=== PATIENT | male | born 1945 | race Caucasian/White ===

== ENCOUNTER 2016-04-17 13:44 | Outpatient (CLI) | payer MEDICARE | END 2016-04-17 13:45 | disposition home or self-care (01) | DX: Z86.73 Personal history of transient ischemic attack (TIA), and cerebral infarction without residual deficits (principal); C90.00 Multiple myeloma not having achieved remission; Z79.01 Long term (current) use of anticoagulants ==

== ENCOUNTER 2016-05-02 15:11 | Outpatient (CLI) | payer MEDICARE | END 2016-05-02 15:12 | disposition home or self-care (01) | DX: Z86.73 Personal history of transient ischemic attack (TIA), and cerebral infarction without residual deficits (principal); C90.00 Multiple myeloma not having achieved remission; Z79.01 Long term (current) use of anticoagulants ==

== ENCOUNTER 2016-05-18 09:47 | Emergency (ER) | payer MEDICARE ==
[2016-05-18] MEDS ORDERED: SODIUM CHLORIDE 0.9% 1,000 ML IV ONE (10:09)
[2016-05-18] MEDS ORDERED: IPRATROPIUM/ALBUTEROL 3 ML NEB INH STA ×2 (10:09→11:47)
[2016-05-18] MEDS ORDERED: IPRATROPIUM/ALBUTEROL 3 ML NEB INH ONE ×2 (10:58→12:15)
[2016-05-18] MEDS ORDERED: AZITHROMYCIN 250 MG TABLET PO STA (12:54)
[2016-05-18] MEDS ORDERED: AZITHROMYCIN 250 MG TABLET PO ONE (12:58)
== END 2016-05-18 13:07 | disposition home or self-care (01) ==
DX: J45.909 Unspecified asthma, uncomplicated (principal); I10 Essential (primary) hypertension; Z79.01 Long term (current) use of anticoagulants; Z79.899 Other long term (current) drug therapy
CPT/HCPCS: 36415; 71020; 80053; 83690; 85025; 85610; 87275; 87276; 93005; 93010; 94640; 94664; 96360; 96361; 99284; A9270; J7620

== ENCOUNTER 2016-05-24 09:42 | Outpatient (CLI) | payer MEDICARE | END 2016-05-24 09:43 | disposition home or self-care (01) | DX: C90.00 Multiple myeloma not having achieved remission (principal); Z86.73 Personal history of transient ischemic attack (TIA), and cerebral infarction without residual deficits; Z79.01 Long term (current) use of anticoagulants ==

== ENCOUNTER 2016-06-04 12:15 | Outpatient (CLI) | payer MEDICARE | END 2016-06-04 12:16 | disposition home or self-care (01) | DX: C90.00 Multiple myeloma not having achieved remission (principal); Z79.01 Long term (current) use of anticoagulants; Z86.73 Personal history of transient ischemic attack (TIA), and cerebral infarction without residual deficits ==

== ENCOUNTER 2016-06-11 13:37 | Outpatient (CLI) | payer MEDICARE | END 2016-06-11 13:38 | disposition home or self-care (01) | DX: C90.00 Multiple myeloma not having achieved remission (principal); Z86.73 Personal history of transient ischemic attack (TIA), and cerebral infarction without residual deficits; Z79.01 Long term (current) use of anticoagulants ==

== ENCOUNTER 2016-06-19 10:48 | Outpatient (CLI) | payer MEDICARE | END 2016-06-19 10:49 | disposition home or self-care (01) | DX: C90.00 Multiple myeloma not having achieved remission (principal); Z86.73 Personal history of transient ischemic attack (TIA), and cerebral infarction without residual deficits; Z79.01 Long term (current) use of anticoagulants ==

== ENCOUNTER 2016-06-29 15:58 | Outpatient (CLI) | payer MEDICARE | END 2016-06-29 15:59 | disposition home or self-care (01) | DX: C90.00 Multiple myeloma not having achieved remission (principal); Z86.73 Personal history of transient ischemic attack (TIA), and cerebral infarction without residual deficits; Z79.01 Long term (current) use of anticoagulants ==

== ENCOUNTER 2016-07-20 11:45 | Outpatient (CLI) | payer MEDICARE | END 2016-07-20 11:46 | disposition home or self-care (01) | DX: Z86.73 Personal history of transient ischemic attack (TIA), and cerebral infarction without residual deficits (principal); C90.00 Multiple myeloma not having achieved remission; Z79.01 Long term (current) use of anticoagulants ==

== ENCOUNTER 2016-12-13 11:22 | Outpatient (CLI) | payer MEDICARE ==
[2016-12-13 11:33] LABS: BASOPHILS # (AUTO) 0.1 10^3/uL (0.0-0.1); BASOPHILS % (AUTO) 3.2 %; EOSINOPHILS # (AUTO) 0.3 10^3/uL (0.0-0.7); EOSINOPHILS % (AUTO) 6.8 %; HCT - HEMATOCRIT 33.2 % (42.0-52.0); HGB - HEMOGLOBIN 11.3 g/dL (14.0-18.0); LYMPHOCYTES # (AUTO) 0.6 10^3/uL (1.5-3.5); LYMPHOCYTES % (AUTO) 12.3 %; MEAN CORPUSCULAR HEMOGLOBIN 31.8 pg (27.0-31.0); MEAN CORPUSCULAR HGB CONC 33.9 g/dL (32.0-36.0); MEAN CORPUSCULAR VOLUME 93.7 fL (80.0-94.0); MEAN PLATELET VOLUME 7.9 fL (7.4-11.4); MONOCYTES # (AUTO) 0.8 10^3/uL (0.0-1.0); MONOCYTES % (AUTO) 16.7 %; NEUTROPHILS # (AUTO) 2.7 10^3/uL (1.5-6.6); NUCLEATED RED BLOOD CELLS AUTO 0.2 /100WBC; RED BLOOD COUNT 3.54 10^6/uL (4.70-6.10); RED CELL DISTRIBUTION WIDTH 15.8 % (12.0-15.0); UNCORRECTED WHITE BLOOD COUNT 4.5 x10^3/uL; WHITE BLOOD COUNT 4.5 x10^3/uL (4.8-10.8)
[2016-12-13 13:02] LABS: ALBUMIN/GLOBULIN RATIO 1.5 (1.0-2.2); BILIRUBIN,TOTAL 1.2 mg/dL (0.2-1.0); CALCIUM 9.3 mg/dL (8.5-10.3); CREATININE 1.5 mg/dL (0.6-1.2); POTASSIUM 3.6 mmol/L (3.5-5.0); TOTAL PROTEIN 6.4 g/dL (6.7-8.2)
== END 2016-12-13 11:23 | disposition home or self-care (01) ==
LOC: LAB 11:22
PROVIDERS: ATTEND Internal Medicine Hematology & Oncology
DX: C90.00 Multiple myeloma not having achieved remission (principal); N18.3 Chronic kidney disease, stage 3 (moderate)
CPT/HCPCS: 36415; 80053; 85025

== ENCOUNTER 2017-08-28 08:50 | Emergency (ER) | payer MEDICARE ==
--- NOTE | 2017-08-28 10:35 | ED Physician Documentation ---
History of Present Illness - Stated complaint Stated Complaint: RT KNEE PX - Chief complaint Chief Complaint: Ext Problem - Additonal information Additional information: hx from pt 71 male has multiple myeloma and is on revlimid which can cause DVTs has had R knee pain - popliteal posterior jt line and prox calf, worse with wt bearing for 3 weeks no injury no fever no CP or SOA Review of Systems Constitutional: denies: Fever Cardiac: denies: Chest pain / pressure Respiratory: denies: Dyspnea Musculoskeletal: reports: Extremity pain, Joint pain PD PAST MEDICAL HISTORY - Past Medical History Cardiovascular: Hypertension : Benign prostate hypertrophy, Renal insuffiency Musculoskeletal: Other - Past Surgical History Past Surgical History: Yes Cardiovascular: Other - Present Medications Home Medications: Ambulatory Orders Medication Instructions Recorded Confirmed Acyclovir 400 mg PO BID 02/23/15 05/18/16 Atorvastatin Calcium [Lipitor] 40 mg PO QPM #30 tablet 02/23/15 05/18/16 Carbidopa/Levodopa [Carbidopa-Levo 1 each PO QID 02/23/15 05/18/16 ER 50-200 Tab] Lenalidomide [Revlimid] 15 mg PO DAILY 02/23/15 05/18/16 Potassium Chloride 20 meq PO DAILY 02/23/15 05/18/16 Rasagiline [Azilect] 1 mg PO DAILY 02/23/15 05/18/16 Amlodipine Besylate [Norvasc] 10 mg PO DAILY 09/29/15 05/18/16 Mirabegron [Myrbetriq] 50 mg PO DAILY 09/29/15 05/18/16 DULoxetine [Cymbalta] 1 cap PO DAILY 08/28/17 08/28/17 Memantine [Namenda] 2 tab PO BID 08/28/17 08/28/17 Rivastigmine [Exelon] 4 cap PO BID 08/28/17 08/28/17 - Allergies Allergies/Adverse Reactions: Allergies Allergy/AdvReac Type Severity Reaction Status Date / Time Iodinated Contrast- Oral and Allergy Unknown Verified 08/28/17 08:59 IV Dye [Iodinated Contrast Media - IV Dye] - Social History Does the pt smoke?: No Smoking Status: Never smoker Does the pt drink ETOH?: No Does the pt have substance abuse?: No - Immunizations Immunizations are current?: Yes PD ED PE NORMAL - Vitals Vital signs reviewed: Yes - Cardiac Cardiac: RRR - Respiratory Respiratory: No respiratory distress, Clear bilaterally - Extremities Extremities: Other (R knee no edema, no redness, no TTP quad or patella tendon, no patellar TTP, mild TTP stefano osterior jt line and politeal fossa, no cord, TTP prox cald, no ACL LCL MCL laxity, MSV intact) Results - Vitals Vitals: Vital Signs - 24 hr 08/28/17 08/28/17 08:55 11:17 Temperature 36 C L Heart Rate 64 67 Respiratory 16 16 Rate Blood Pressure 168/93 H 167/102 H O2 Saturation 100 99 Oxygen O2 Source Room air - Rads (name of study) knee Radiology: See rad report (small effusion) doppler Radiology: See rad report (no DVT, Bakers cyst) PD MEDICAL DECISION MAKING - ED course ED course: pt declined pain meds Departure - Departure Disposition: 01 Home, Self Care Clinical Impression: Bakers cyst Qualifiers: Laterality: right Qualified Code(s): M71.21 - Synovial cyst of popliteal space [Esha], right knee Condition: Good Instructions: Cyst Balbuena Popliteal Comments: Thankfully you do not have a blood clot or any bone disease to cause the pain But the ultrasound did shows a bakers cyst - this is a bulging of joint fluid into the soft tissue in the back of the knee. It can be quite uncomfortable but is not dangerous and often resolves on its own Recommend tylenol and ice for the pain Please follow up with your PMD if not improving in 2 weeks Return if worse Also please follow up with your PMD about your blood pressure - it was high today
--- NOTE | 2017-08-28 11:14 | XRAY Report ---
EXAM: RIGHT KNEE RADIOGRAPHY EXAM DATE: 08/28/2017 10:48 AM. CLINICAL HISTORY: Knee pain. COMPARISON: None. TECHNIQUE: 4 views. FINDINGS: Bones: Normal. No fractures or bone lesions. Joints: Small suprapatellar effusion. No significant degenerative change. No dislocation. Soft Tissues: Vascular calcifications. IMPRESSION: Small joint effusion. No acute osseous abnormalities. [facility] Referring Provider Line: [phone] SITE ID: [id number]
[2017-08-28 11:19] VITALS: BP 167/102
--- NOTE | 2017-08-28 12:48 | Ultrasound Report ---
RIGHT LEG VENOUS DUPLEX: 08/28/2017 CLINICAL INDICATION: Popliteal and proximal calf pain. TECHNIQUE: Real-time sonographic vascular imaging was performed by the diesel engine erector through the right leg utilizing both color flow and Doppler spectral analysis. Multiple public health representative static images were saved for review. FINDINGS: A right lower extremity venous sonogram is performed revealing the common femoral, superficial femoral, profunda femoris, and popliteal veins to be adequately visualized without intraluminal defects. There is normal venous compression, augmentation, phasicity, and spontaneity of venous flow. In the calf, the visualized more cephalad portions of posterior tibial and peroneal veins are grossly compressible, without filling defects. Incidental note is made of a Balbuena cyst in the right popliteal fossa. IMPRESSION: NO EVIDENCE OF DEEP VENOUS THROMBOSIS. TD: 08/28/2017 12:01 OLIVIA
== END 2017-08-28 13:37 | disposition home or self-care (01) ==
LOC: ED 08:50
DX: M71.21 Synovial cyst of popliteal space [Baker], right knee (principal); C90.00 Multiple myeloma not having achieved remission; I10 Essential (primary) hypertension
CPT/HCPCS: 99283